=== PATIENT | female | born 1980 | race Caucasian/White ===

== ENCOUNTER 2023-02-01 13:09 | Inpatient (IN) | payer BC, OTHER ==
[2023-02-01 15:01] LABS: BHCG - Serum Negative (NEGATIVE); Pregs Control Background? CLEAR/WHITE (CLR/WHITE); Pregs Control Bar Appear? YES (CONTROL BAR)
[2023-02-01 15:04] LABS: #Basophils 0.1 10x3/uL (0.0-0.2); #Eosinphils 0.1 10x3/uL (0.0-0.5); #Monocytes 0.7 10x3/uL (0.0-1.1); #Neutrophils 4.5 10x3/uL (1.5-8.4); %Lymphocytes 15.7 % (18.0-47.0); %Monocytes 10.8 % (0.0-10.0); %Neutrophils 70.9 % (40.0-75.0); Hemoglobin 4.4 g/dL (12.0-15.5); Mean Corpuscular HGB CONC 28.8 g/dL (32.0-36.0); Mean Corpuscular Volume 76.5 fl (81.6-98.3); Mean Platelet Volume 9.7 fl (7.4-10.4); Platelet Count 273 10x3/uL (150-450); RBC Distribution Width 27.9 % (11.5-14.5); White Blood Cell (WBC) Count 6.3 10x3/uL (3.5-10.5)
[2023-02-01 15:11] LABS: Acetaminophen Less than 10.0 mcg/mL (10.0-30.0); Alcohol Less than 10 mg/dL (Less than 10); Salicylate Less than 8.0 mg/dL (15.0-30.0)
[2023-02-01 15:12] LABS: ALT (SGPT) 42 U/L (8-55); AST (SGOT) 61 U/L (5-34); Albumin 3.7 g/dL (3.5-5.0); Alkaline Phosphatase 65 U/L (40-110); Anion Gap 15 mmol/L (10-20); BUN (Urea Nitrogen) 9 mg/dL (7.0-18.7); Bilirubin, Total 0.3 mg/dL (0.2-1.2); Calc. Creatinine Clearance 0 mL/min (70-130); Calcium 8.5 mg/dL (7.8-10.44); Carbon Dioxide 21 mmol/L (22-29); Chloride 106 mmol/L (98-107); Estimated GFR 110; Globulin 2.4 g/dL (2.4-3.5); Glucose 110 mg/dL (70-105); Potassium 4.1 mmol/L (3.5-5.1); Protein, Total 6.1 g/dL (6.0-8.3); Sodium 138 mmol/L (136-145)
[2023-02-01 16:23] LABS: Iron 13 ug/dL (50-170); Iron Binding Capacity, Total 525 mcg/dL (265-497)
[2023-02-01 16:38] LABS: Anisocytosis SLIGHT = 6-15 cells (100X) (0-5/hpf); Macrocytosis SLIGHT = 6-15 cells (100X) (0-5/hpf); Microcytosis SLIGHT = 6-15 cells (100X) (0-5/hpf)
[2023-02-01 16:39] LABS: Hypochromia SLIGHT = 6-15 cells (100X) (0-5/hpf); Polychromasia SLIGHT = 2-3 cells (100X) (0-2/hpf)
[2023-02-01 16:40] LABS: Ovalocytes SLIGHT = 2-5 cells (100X) (0-1/hpf)
[2023-02-01 16:41] LABS: Large Platelets SLIGHT (None Seen); Platelet Morphology Comment Appears Adequate; Reflex for Review?? YES; Target Cells SLIGHT = 2-5 cells (100X) (0-1/hpf)
[2023-02-01 22:13] VITALS: BMI 24.1
[2023-02-01 22:53] LABS: Hemoglobin 7.7 g/dL (12.0-15.5)
[2023-02-01] MEDS ORDERED: Furosemide 20 MG/2 ML VIAL SLOW IVP SCH (23:30)
[2023-02-01] MEDS: Acetaminophen 325 MG TAB PO PRN (23:39)
[2023-02-02 05:31] LABS: #Basophils 0.1 10x3/uL (0.0-0.2); #Eosinphils 0.1 10x3/uL (0.0-0.5); #Monocytes 0.7 10x3/uL (0.0-1.1); %Basophils 1.1 % (0.0-2.0); %Eosinophils 1.4 % (0.0-6.0); %Lymphocytes 15.1 % (18.0-47.0); %Monocytes 10.1 % (0.0-10.0); %Neutrophils 71.9 % (40.0-75.0); Mean Corpuscular HGB CONC 31.7 g/dL (32.0-36.0); Mean Corpuscular Hemoglobin 24.8 pg (27.0-33.0); Mean Corpuscular Volume 78.3 fl (81.6-98.3); Mean Platelet Volume 9.2 fl (7.4-10.4); Platelet Count 225 10x3/uL (150-450); RBC Distribution Width 21.4 % (11.5-14.5); Red Blood Cell (RBC) Count 3.22 10x6/uL (3.90-5.03)
[2023-02-02 05:48] LABS: Anion Gap 16 mmol/L (10-20); BUN (Urea Nitrogen) 6 mg/dL (7.0-18.7); Calc. Creatinine Clearance 116 mL/min (70-130); Calcium 8.6 mg/dL (7.8-10.44); Carbon Dioxide 21 mmol/L (22-29); Chloride 103 mmol/L (98-107); Estimated GFR 111; Glucose 92 mg/dL (70-105); Magnesium 1.9 mg/dL (1.6-2.6); Potassium 3.5 mmol/L (3.5-5.1); Sodium 136 mmol/L (136-145)
[2023-02-02] MEDS: Acetaminophen 325 MG TAB PO PRN ×2 (07:01→11:18)
[2023-02-02] MEDS: Ferrous Sulfate 325 MG TAB PO SCH ×2 (08:54→17:13)
[2023-02-02] MEDS: Losartan 25 MG TAB PO SCH (08:54)
[2023-02-02] MEDS: Polyethylene Glycol 3350 17 GM Packet PO SCH (10:52)
[2023-02-02] MEDS: hydrALAZINE 20 MG/ML VIAL SLOW IVP PRN ×2 (11:47→20:32)
[2023-02-02 12:19] LABS: Hemoglobin 8.5 g/dL (12.0-15.5)
[2023-02-02] MEDS ORDERED: hydrALAZINE 20 MG/ML VIAL SLOW IVP SCH (12:45)
[2023-02-02] MEDS ORDERED: ALPRAZolam 0.5 MG TAB PO SCH (15:00)
[2023-02-02 20:01] LABS: Hemoglobin 8.6 g/dL (12.0-15.5)
[2023-02-02] MEDS: Famotidine 20 MG TAB PO SCH (20:17)
[2023-02-02] MEDS ORDERED: hydrALAZINE 20 MG/ML VIAL ONE (20:30)
[2023-02-03] MEDS: NIFEdipine XL 30 MG TAB PO SCH (09:40)
[2023-02-03] MEDS: Losartan 25 MG TAB PO SCH (09:40)
[2023-02-03] MEDS: Hydrochlorothiazide 25 MG TAB PO SCH (09:42)
[2023-02-03] MEDS: Famotidine 20 MG TAB PO SCH ×2 (09:42→22:16)
[2023-02-03] MEDS: Ferrous Sulfate 325 MG TAB PO SCH ×3 (09:42→16:49)
[2023-02-03] MEDS: Acetaminophen 325 MG TAB PO PRN (09:45)
[2023-02-03] MEDS: Polyethylene Glycol 3350 17 GM Packet PO SCH (09:46)
[2023-02-04 03:45] LABS: #Basophils 0.1 10x3/uL (0.0-0.2); #Eosinphils 0.3 10x3/uL (0.0-0.5); #Neutrophils 6.8 10x3/uL (1.5-8.4); %Basophils 0.9 % (0.0-2.0); %Eosinophils 2.9 % (0.0-6.0); %Lymphocytes 16.8 % (18.0-47.0); %Monocytes 10.1 % (0.0-10.0); %Neutrophils 68.9 % (40.0-75.0); Hemoglobin 8.7 g/dL (12.0-15.5); Mean Corpuscular HGB CONC 31.1 g/dL (32.0-36.0); Mean Corpuscular Hemoglobin 24.9 pg (27.0-33.0); Mean Corpuscular Volume 80.2 fl (81.6-98.3); Mean Platelet Volume 9.7 fl (7.4-10.4); Platelet Count 286 10x3/uL (150-450); RBC Distribution Width 23.7 % (11.5-14.5); Red Blood Cell (RBC) Count 3.49 10x6/uL (3.90-5.03); White Blood Cell (WBC) Count 9.8 10x3/uL (3.5-10.5)
[2023-02-04 03:53] LABS: Anion Gap 13 mmol/L (10-20); BUN (Urea Nitrogen) 7 mg/dL (7.0-18.7); Calc. Creatinine Clearance 127 mL/min (70-130); Calcium 8.7 mg/dL (7.8-10.44); Carbon Dioxide 22 mmol/L (22-29); Chloride 104 mmol/L (98-107); Estimated GFR 114; Glucose 94 mg/dL (70-105); Potassium 3.4 mmol/L (3.5-5.1); Sodium 136 mmol/L (136-145)
[2023-02-04] MEDS ORDERED: Acetaminophen 325 MG TAB PO PRN (07:47)
[2023-02-04] MEDS ORDERED: Ondansetron ODT 4 MG TAB PO PRN (07:47)
[2023-02-04] MEDS ORDERED: Ondansetron PF 4 MG/2 ML Vial IVP PRN (07:47)
[2023-02-04] MEDS ORDERED: Guaifenesin DM 100-10/5 ML UDCUP PO PRN (07:47)
[2023-02-04] MEDS ORDERED: Acetaminophen 650 MG Suppository PR PRN (07:47)
[2023-02-04] MEDS ORDERED: Senokot S 8.6-50 MG TAB PO PRN (07:47)
[2023-02-04] MEDS ORDERED: Potassium Chloride 20 MEQ TAB PO SCH (08:30)
[2023-02-04] MEDS: Hydrochlorothiazide 25 MG TAB PO SCH (08:57)
[2023-02-04] MEDS: NIFEdipine XL 30 MG TAB PO SCH (08:58)
[2023-02-04] MEDS: Ferrous Sulfate 325 MG TAB PO SCH (08:58)
[2023-02-04] MEDS: Famotidine 20 MG TAB PO SCH (08:59)
[2023-02-04] MEDS: Losartan 25 MG TAB PO SCH (08:59)
[2023-02-04] MEDS: Polyethylene Glycol 3350 17 GM Packet PO SCH (09:00)
[2023-02-04] MEDS ORDERED: Famotidine 20 MG TAB PO SCH (09:00)
[2023-02-04 09:49] VITALS: BP 161/94; TEMP 98.1
== END 2023-02-04 13:17 | disposition home or self-care (01) | DRG 812 ==
LOC: CSHERS 13:09 → CSHTELE 21:17
PROVIDERS: ADMIT Family Medicine; ATTEND Internal Medicine
PROC: 30233N1 Transfusion of Nonautologous Red Blood Cells into Peripheral Vein, Percutaneous Approach (ICD-10-PCS; principal; 2023-02-01)
DX: D50.9 Iron deficiency anemia, unspecified (principal); N92.0 Excessive and frequent menstruation with regular cycle; I16.0 Hypertensive urgency; L89.899 Pressure ulcer of other site, unspecified stage; F17.210 Nicotine dependence, cigarettes, uncomplicated; Z91.148 Patient's other noncompliance with medication regimen for other reason; Z98.890 Other specified postprocedural states; Z88.0 Allergy status to penicillin
CPT/HCPCS: 36415; 36430; 71045; 74160; 80048; 80053; 80307; 82088; 82728; 83540; 83550; 83735; 83835; 83880; 84244; 84443; 84484; 84703; 85025; 85060; 86850; 86900; 86901; 93005; 93306; J0360; J1940; P9016